=== PATIENT | male | born 1960 | race Two or more races ===

== ENCOUNTER 2018-08-07 05:11 | Day surgery (SDC) | payer OTHER ==
[~2018-08-07 05:11] MED LIST: AVAPRO150 MG PO
[2018-08-07] MEDS ORDERED: OXYC1TAB9 PO (15:26)
[2018-08-07] MEDS ORDERED: DUI500 PO (15:26)
== END 2018-08-07 19:00 | disposition home or self-care (01) ==
LOC: CIR.AMB 05:11
DX: S76.111A Strain of right quadriceps muscle, fascia and tendon, initial encounter (principal); S86.812A Strain of other muscle(s) and tendon(s) at lower leg level, left leg, initial encounter